=== PATIENT | female | born 1945 | race Two or more races ===

== ENCOUNTER 2020-04-20 18:05 | Inpatient (IN) | payer OTHER ==
[~2020-04-20] VITALS: Ht 144.8 cm; Wt 63.3 kg
[2020-04-20 21:20] VITALS: BP 156/82
[2020-04-20 21:30] VITALS: BP 156/98
--- NOTE | 2020-04-20 22:00 | NUR ---
admission notes: received report from culinary internshipbabs on, pt brought to the unit via stretcher pt mandi from [facility] for r/o tb. pt a/o x3 on ra respirations even and unlabored. kept comfortable. iv access patent an flushing well, on hl. skin assessment performed. inventory of belongings completed by jana martínez. pt council. all paper works from [facility] reviewed attached to chart. per report pt received zosyn 3.375 gm iv at 1999 in [facility] prior to pt dc. all admission questions answered by pt. per pt she claimed that she received flu vaccine ion [facility] however unsure of date/unable to recall date, offered to be vaccinated again but pt refused. oriented pt to unit policy and hourly rounding, use of call light system. mrsa swab done. vs taken and recorded. tele monitoring placed, on afib controlled hr 75. safety precautions for fall initiated, call light in reach, will continue monitoring pt.
[2020-04-20] MEDS ORDERED: LOSA50TA39 PO (22:41)
[2020-04-20] MEDS ORDERED: ZINC220C6 PO (22:41)
[2020-04-20] MEDS ORDERED: PROT946L PO (22:41)
[2020-04-20] MEDS ORDERED: MORP2VIA IVP (22:41)
[2020-04-20] MEDS ORDERED: METO25TA6 PO (22:41)
[2020-04-20] MEDS ORDERED: MENT71OI2 TP (22:41)
[2020-04-20] MEDS ORDERED: LISI-604 PO (22:41)
[2020-04-20] MEDS ORDERED: PIPE3.3749 IV (22:41)
[2020-04-20] MEDS ORDERED: MULT-754 PO (22:41)
[2020-04-20] MEDS ORDERED: APIX5TAB PO (22:41)
[2020-04-20] MEDS ORDERED: ACET-3117 PO (22:41)
[2020-04-20] MEDS ORDERED: SODI480S2 MC (22:41)
[2020-04-20] MEDS ORDERED: AMLO10TA4 PO (22:41)
[2020-04-20] MEDS ORDERED: ASCO500T21 PO (22:41)
[2020-04-20] MEDS ORDERED: PANT40TA2 PO (22:41)
--- NOTE | 2020-04-20 22:46 | NUR ---
RN NOTES/PAGED EPIC: PAGED EPIC HOSPITALIST REGARDING PT'S ADMISSION. RECEIVED CALL BACK AT THIS TIME, SPOKED WITH DR BRYSON, MADE AWARE OF PT'S ARRIVAL TO THE UNIT, DIRECT ADMIT FROM [facility], DX WITH PNA AND R/O TB, INFORMED MD OF VS AND LABS FROM [facility], MADE AWARE ALL MEDICATIONS (HOME MED LIST/HOSPITAL MED RECON LIST) ALL INPUT/ENTERED IN THE COMPUTER. STATED OKAY, WILL REVIEW AND WILL PLACE ADMIT ORDERS.
[2020-04-21] VITALS (9 sets, daily range): BP systolic 135–173; BP diastolic 70–106
[2020-04-21] MEDS ORDERED: ONDANSETRON HCL/PF 4 MG/2 ML VIAL IVP PRN
[2020-04-21] MEDS ORDERED: ZINC OXIDE TOP SCH
[2020-04-21] MEDS ORDERED: MAG HYDROX/AL HYDROX/SIMETH 30 ML UDC PO PRN
[2020-04-21] MEDS ORDERED: MENTHOL TOP SCH
[2020-04-21] MEDS ORDERED: Z GUARD REMEDY 2 OZ OINT TP PRN
[2020-04-21] MEDS ORDERED: MAGNESIUM HYDROXIDE 30 ML UDC PO PRN
[2020-04-21] MEDS ORDERED: PIPERACILLIN /TAZOBACTAM 3.375 G VIAL IV SCH (01:00)
[2020-04-21] MEDS ORDERED: PIPERACILLIN /TAZOBACTAM 3.375 G VIAL IV ONE (01:51)
[2020-04-21] MEDS: ZOSYN IVPB 3.375 G in IV D5W 50ml IV SCH ×2 (02:02→08:49)
[2020-04-21 06:42] LABS: BASOPHILS % (AUTO) 0.4 % (0.0-2.0); EOSINOPHILS % (AUTO) 0.9 % (0.0-6.0); HEMATOCRIT 40 % (33-45); HEMOGLOBIN 12.9 g/dL (11.5-14.8); LYMPHOCYTES # (AUTO) 0.8 /CMM (0.8-4.8); LYMPHOCYTES % (AUTO) 15.4 % (20.0-44.0); MEAN CORPUSCULAR HGB CONC 33 g/dl (31.0-36.0); MEAN CORPUSCULAR VOLUME 97 fL (82-100); MONOCYTES # (AUTO) 0.3 /CMM (0.1-1.30); MONOCYTES % (AUTO) 6.8 % (2.0-12.0); NEUTROPHILS # (AUTO) 3.9 /CMM (1.8-8.9); NEUTROPHILS % (AUTO) 76.5 % (43.0-81.0); PLATELET COUNT (AUTO) 237 /CMM (150-450); RED BLOOD CELL COUNT(AUTO) 4.09 MIL/uL (4.0-5.2); WHITE BLOOD COUNT (AUTO) 5.1 K/uL (4.3-11.0)
--- NOTE | 2020-04-21 06:47 | NUR ---
End of shift report: Pt remains on ra respirations even and unlabored. Iv access remains patent and flushing well, on hl, no s/s of iv infiltration noted. Pt on r/o tb isolation, ppe utilized with face shield and n95. Ble kept offloaded on pillows. Pt unable to provide specimen/sputum for afb smear despite teaching depp breathing coughing exercises, pt stated she only has dry cough. Pt had bm twice in the shift. Wound care consult, id and pulmo consult today. Vs remains stable, needs attended. Safety precautions for fall remains engaged, call light in reach, will endorse to day rn for kym.
[2020-04-21 07:22] LABS: CALCIUM, SERUM 9.6 mg/dL (8.5-10.1); CREATININE 0.6 mg/dL (0.6-1.3); MAGNESIUM 1.9 mg/dL (1.8-2.4); PHOSPHORUS 3.8 mg/dL (2.5-4.9); POTASSIUM 3.7 mmol/L (3.5-5.1)
--- NOTE | 2020-04-21 07:40 | NUR ---
RN NOTES Received Patient in bed resting comfortably in moderate high back rest. A/O X2. Iv access remains patent and flushing well, on hl, no s/s of iv infiltration noted. on Isolation, r/o tb isolation, Safety precautions for fall remains engaged, call light in reach, will continue to monitor.
[2020-04-21] MEDS: METOPROLOL TARTRATE 25 MG TABLET PO SCH ×2 (08:49→21:53)
[2020-04-21] MEDS: MULTIVITAMINS,THERAGRAN 1 UDTAB TABLET PO SCH (08:49)
[2020-04-21] MEDS: PANTOPRAZOLE 40 MG TABLET.DR PO SCH (08:49)
[2020-04-21] MEDS: ASCORBIC ACID 500 MG TABLET PO SCH (08:49)
[2020-04-21] MEDS: ZINC SULFATE 220 MG CAPSULE PO SCH (08:49)
[2020-04-21] MEDS: AMLODIPINE BESYLATE 10 MG TABLET PO SCH (08:50)
[2020-04-21] MEDS: APIXABAN 5 MG TABLET PO SCH ×2 (08:51→16:57)
[2020-04-21] MEDS ORDERED: LISINOPRIL (20MG) 20 MG TABLET PO SCH (09:00)
[2020-04-21] MEDS: PROSOURCE / PROSTAT (PYXIS) 30 ML UDC PO SCH ×2 (09:07→16:56)
[2020-04-21] MEDS: LOSARTAN POTASSIUM 50 MG TABLET PO SCH (10:50)
--- NOTE | 2020-04-21 10:50 | NUR ---
WOUND CARE CONSULT: PT FOLLOWED BY DR SALAZAR URIAS FOR SACRAL WOUND, PRESENT ON ADMISSION. RECOMMENDATIONS MADE FOR WOUND CARE AND SKIN PROTECTION. DISCUSSED WITH NURSING STAFF. MD IN AGREEMENT WITH PLAN OF CARE.
[2020-04-21] MEDS: DAKINS QUARTER STRENGTH (0.125%) 480 ML BOTTLE TOP SCH (11:53)
[2020-04-21] MEDS: PIPERACILLIN /TAZOBACTAM 3.375 G in IV D5W 100 ML IV SCH ×2 (14:09→21:57)
--- NOTE | 2020-04-21 18:46 | NUR ---
RN NOTES Patient in bed resting comfortably in moderate high back rest. A/O X2. Iv access remains patent and flushing well, on hl, no s/s of iv infiltration noted. on Isolation, r/o tb isolation, Safety precautions for fall remains engaged, call light in reach, will endorse to lieutenant shift supervisor nurse for kym.
--- NOTE | 2020-04-21 19:16 | NUR ---
AERONAUTICAL ENGINEERING PROFESSOR: RECEIVED PATIENT Patient in bed, awake. A/O x3 Forgetful. Tolerating room air, denies SOB. AFib controlled in the Tele monitor. AFB smear pending, sputum not available per DEANDRE Quezada. Airborne precaution maintained.
[2020-04-22] VITALS: BP 135/76
[2020-04-22 04:00] VITALS: BP 158/93
[2020-04-22 04:57] VITALS: BP 158/93
[2020-04-22] MEDS: PIPERACILLIN /TAZOBACTAM 3.375 G in IV D5W 100 ML IV SCH ×3 (05:09→22:28)
--- NOTE | 2020-04-22 06:37 | NUR ---
PRESSURE CONTROLLER: END OF SHIFT REPORT Patient in bed, slept well. AFib controlled HR 60 in the Tele monitor. On IV Abx. Afebrile. Quantiferon TB Gold pending result. Stable on room air, denies SOB with exertion. AFB cx smear pending, sputum not available for test, no cough. Airborne isolation for R/O TB. Will endorse to oncoming RN.
[2020-04-22 07:21] LABS: BASOPHILS % (AUTO) 0.9 % (0.0-2.0); EOSINOPHILS % (AUTO) 1.3 % (0.0-6.0); HEMATOCRIT 36 % (33-45); HEMOGLOBIN 11.8 g/dL (11.5-14.8); LYMPHOCYTES # (AUTO) 0.6 /CMM (0.8-4.8); LYMPHOCYTES % (AUTO) 15.8 % (20.0-44.0); MEAN CORPUSCULAR HGB CONC 33 g/dl (31.0-36.0); MEAN CORPUSCULAR VOLUME 96 fL (82-100); MONOCYTES # (AUTO) 0.3 /CMM (0.1-1.30); MONOCYTES % (AUTO) 7.3 % (2.0-12.0); NEUTROPHILS % (AUTO) 74.7 % (43.0-81.0); PLATELET COUNT (AUTO) 218 /CMM (150-450); RED BLOOD CELL COUNT(AUTO) 3.75 MIL/uL (4.0-5.2)
--- NOTE | 2020-04-22 07:30 | NUR ---
TELE/RN OPENING NOTES Received patient in bed, A&O x 3, [place]. Denies any pain and discomfort at this time. Breathing even and non-labored on RA. No respiratory or cardiac distress noted. On tele monitor, reading Afib (controlled) 71. IV access noted on RFA #22, patent and intact, and flushing well. Sensation from all peripheral extremities intact. Bed locked to its lowest position, side rails x 2 up, bed alarm on, call light in hand. Instructed patient to use call light when in need of assistance. Airborne precautions maintained. Will continue current medical management. Addendum: 04/22/20 at 1045 by HARRY GRACE RN Solomon in place, patent and intact, draining clear yellow urine output well.
[2020-04-22 07:35] LABS: CALCIUM, SERUM 9.3 mg/dL (8.5-10.1); CARBON DIOXIDE 29 mmol/L (21-32); CHLORIDE 106 mmol/L (98-107); CREATININE 0.5 mg/dL (0.6-1.3); GLUCOSE 97 mg/dL (74-106); POTASSIUM 3.3 mmol/L (3.5-5.1); SODIUM SERUM 141 mmol/L (136-145); UREA NITROGEN, BLOOD 13 mg/dL (7-18)
[2020-04-22 08:17] VITALS: BP 147/90
[2020-04-22] MEDS: METOPROLOL TARTRATE 25 MG TABLET PO SCH ×2 (08:24→22:28)
[2020-04-22] MEDS: ZINC SULFATE 220 MG CAPSULE PO SCH (08:24)
[2020-04-22] MEDS: MULTIVITAMINS,THERAGRAN 1 UDTAB TABLET PO SCH (08:24)
[2020-04-22] MEDS: AMLODIPINE BESYLATE 10 MG TABLET PO SCH (08:25)
[2020-04-22] MEDS: PANTOPRAZOLE 40 MG TABLET.DR PO SCH (08:25)
[2020-04-22] MEDS: LOSARTAN POTASSIUM 50 MG TABLET PO SCH (08:25)
[2020-04-22] MEDS: ASCORBIC ACID 500 MG TABLET PO SCH (08:26)
[2020-04-22] MEDS: APIXABAN 5 MG TABLET PO SCH ×2 (08:32→16:44)
--- NOTE | 2020-04-22 10:00 | NUR ---
MS/RN NOTES Patient refused to be lying on her right side. Will turn and reposition patient by supine or left lateral position every 2 hours.
[2020-04-22] MEDS: PROSOURCE / PROSTAT (PYXIS) 30 ML UDC PO SCH ×2 (10:29→16:42)
[2020-04-22] MEDS ORDERED: POTASSIUM CHLORIDE 20 MEQ TAB.PRT.SR PO SCH (10:30)
[2020-04-22] MEDS: DAKINS QUARTER STRENGTH (0.125%) 480 ML BOTTLE TOP SCH (10:34)
[2020-04-22] MEDS ORDERED: POTASSIUM CHLORIDE 20 MEQ TAB.PRT.SR PO ONE (11:40)
[2020-04-22] MEDS: HYDROCODONE/APAP 5/325MG TABLET PO PRN (11:52)
--- NOTE | 2020-04-22 11:52 | NUR ---
MS/RN NOTE Patient complaining of 7/10 aching pain on the right hand, where the previous IV site was located. Patient able to grasp object slowly, denies any numbness or tingling. Skin is pink, radial pulses noted. Elevated extremity with a pillow. Patient asked for pain medication, gave norco 5-325. Will continue to monitor.
--- NOTE | 2020-04-22 11:54 | NUR ---
MS/RN NOTE Clarified with pharmacy regarding potassium replacement orders since there are two orders: one at 1030 and one at 1140. Pharmacy said to omit the 1140 one, since they do not see it on the system. Pharmacy advised to administer the 1030 one. Administered PO 20 mEq of K DUR. Will continue to monitor.
--- NOTE | 2020-04-22 13:00 | NUR ---
Gisselle Reyes, DOWN FILLER at bedside, orders sputum induction in order to obtain AFB culture smear. Orders carried out, notified RT.
--- NOTE | 2020-04-22 13:30 | NUR ---
MS/RN NOTE RT states unable to obtain sputum since patient's lungs are clear and is unable to cough.
[2020-04-22 16:08] VITALS: BP 128/76
[2020-04-22] MEDS ORDERED: INFLUENZA VACCINE 2020-21 0.5 ML DISP.SYRIN IM ONE (18:00)
--- NOTE | 2020-04-22 18:35 | NUR ---
MS/RN CLOSING NOTES Patient resting in bed, A&O x 3, forgetful. All needs are met and attended to. VSS, afebrile, no SOB noted. Denies any pain/discomfort at this time. Breathing even and non-labored on RA, no SOB noted. No cardiac distress noted. IV access remained patent and intact, and flushing well. Turned and reposition every 2 hrs. Sensation from all peripheral extremities intact. Solomon in place, draining yellow urine well. Fall precautions maintained. Will endorse to shift leader nurse.
--- NOTE | 2020-04-22 19:30 | NUR ---
MS RN MS NOTES REPORT RECIEVED FROM HARRY CARRERA. PT IN BED PT DENIES SOB. AIRBORNE PRECAUTIONS IN PLACE R/O TB. REQUESTED SPUTUM SAMPLE PT STATES, "I HAVE THIS CUP HERE, BUT I AM JUST NOT COUGHING UP ANY PHLEGM." BREATHING EVEN AND NON- LABORED. DIMINISHED BREATH SOUNDS BILATERALLY. IV ACCESS TO RIGHT FA 22 GAUGE FLUSHED PATENT NO S/S OF INFILTRATION. FC DRAINING YELLOW URINE. CALL LIGHT IN REACH BED DOWN LOCKES SRX3 VERBALIZED UNDERSTANDING TO CALL FOR ASSISTANCE IF NEEDED.
--- NOTE | 2020-04-22 19:31 | NUR ---
FLU VACCINE PER REPORT FROM HARRY FLU VACCINE WAS TO BE GIVEN TO PT BUT PT REPORTS SHE RECIEED AT [facility] IN DAY OF 2019 OF THIS YEAR
[2020-04-22 20:43] VITALS: BP 121/60
[2020-04-22] MEDS: ACETAMINOPHEN 325 MG TABLET PO PRN (22:36)
[2020-04-23] MEDS: PIPERACILLIN /TAZOBACTAM 3.375 G in IV D5W 100 ML IV SCH ×3 (06:17→21:01)
[2020-04-23] MEDS: ACETAMINOPHEN 325 MG TABLET PO PRN (06:23)
[2020-04-23 06:56] LABS: CALCIUM, SERUM 9.4 mg/dL (8.5-10.1); CREATININE 0.6 mg/dL (0.6-1.3); POTASSIUM 3.3 mmol/L (3.5-5.1)
--- NOTE | 2020-04-23 07:00 | NUR ---
MS RN OPENING NOTES RECEIVED PT RESTING IN BED AT THIS TIME. PT IS A/O X3, SOMETIMES FORGETFUL. NO SOB NOTED, NO S/S OF ANY ACUTE DISTRESS NOTED. NO C/O PAIN AT THIS TIME. RESPIRATIONS ARE EVEN AND UNLABORED WITH EQUAL RISE AND FALL IN CHEST. IV ACCESS NOTED IN RFA G#22, INTACT, PATENT AND FLUSHING WELL. LEYVA CATHETER IN PLACE, DRAINING TO GRAVITY CLEAR YELLOW URINE OUTPUT. SAFETY PRECAUTION IN PLACE AND MAINTAINED AT ALL TIMES. BED IN LOWEST LOCKED POSITION, HOB ELEVATED, SIDE RAILS UP X 2, CALL LIGHT WITHIN REACH. WILL CONTINUE TO MONITOR
[2020-04-23] MEDS: LOSARTAN POTASSIUM 50 MG TABLET PO SCH (08:57)
[2020-04-23] MEDS: MULTIVITAMINS,THERAGRAN 1 UDTAB TABLET PO SCH (08:57)
[2020-04-23] MEDS: ZINC SULFATE 220 MG CAPSULE PO SCH (08:57)
[2020-04-23] MEDS: ASCORBIC ACID 500 MG TABLET PO SCH (08:58)
[2020-04-23] MEDS: AMLODIPINE BESYLATE 10 MG TABLET PO SCH (08:58)
[2020-04-23] MEDS: METOPROLOL TARTRATE 25 MG TABLET PO SCH ×2 (08:58→21:07)
[2020-04-23] MEDS: PANTOPRAZOLE 40 MG TABLET.DR PO SCH (08:58)
[2020-04-23] MEDS: APIXABAN 5 MG TABLET PO SCH ×2 (08:59→16:51)
[2020-04-23] MEDS: PROSOURCE / PROSTAT (PYXIS) 30 ML UDC PO SCH ×2 (09:06→16:49)
[2020-04-23] MEDS: DAKINS QUARTER STRENGTH (0.125%) 480 ML BOTTLE TOP SCH (09:06)
[2020-04-23 09:20] VITALS: BP 158/88
[2020-04-23] MEDS: POTASSIUM CHLORIDE 20 MEQ TAB.PRT.SR PO SCH ×2 (09:41→10:52)
--- NOTE | 2020-04-23 13:43 | NUR ---
MISCELLANEOUS ORDER PER DR ESTRADA TO OBTAIN RESULTS OF CHEST CT SCAN WHERE PT UNDERWENT THORACOTOMY. PT UNABLE TO FURNISH NURSE WITH LOCATION WHERE PROCEDURE WAS DONE, NO NEXT OF KIN LISTED. WILL CONTINUE WITH PLAN OF CARE
--- NOTE | 2020-04-23 16:00 | NUR ---
MS/RN OPENING NOTES Received patient in bed from [facility] RN, A&O x 3, [facility]. Denies any pain and discomfort at this time. Breathing even and non-labored on RA. No respiratory or cardiac distress noted. IV access noted on RFA #22, patent and intact, and flushing well. Sensation from all peripheral extremities intact. Solomon in place, draining yellow urine output well. Bed locked to its lowest position, side rails x 2 up, bed alarm on, call light in hand. Instructed patient to use call light when in need of assistance. Airborne precautions maintained. Will continue current medical management.
[2020-04-23 16:12] VITALS: BP 142/76
--- NOTE | 2020-04-23 17:00 | NUR ---
MS/RN NOTES Patient states she does not remember which hospital she underwent thoracotomy. [facility], states "medical records department is not available today. Try tomorrow morning." Will endorse to material handler 2nd shift nurse.
[2020-04-23 19:00] VITALS: BP 168/80
--- NOTE | 2020-04-23 19:25 | NUR ---
MS/RN OPENING NOTES Received patient in bed from [facility] RN, A&O x 3, [facility]. Denies any pain and discomfort at this time. Breathing even and non-labored on RA. No respiratory or cardiac distress noted. IV access noted on RFA #22, patent and intact, and flushing well. Sensation from all peripheral extremities intact. Solomon in place, draining yellow urine output well. Bed locked to its lowest position, side rails x 2 up, bed alarm on, call light in hand. Instructed patient to use call light when in need of assistance. Airborne precautions maintained. Will continue current medical management.
--- NOTE | 2020-04-23 19:27 | NUR ---
MS/RN CLOSING NOTES Patient resting in bed, A&O x 3, [place]. All needs met and attended to. VSS, afebrile, no SOB noted. Denies any pain and discomfort at this time. Breathing even and non-labored on RA. No respiratory or cardiac distress noted. IV access noted on RFA #22, patent and intact, and flushing well. Sensation from all peripheral extremities intact. Solomon in place, draining yellow urine output well. Fall precautions maintained. Airborne precautions maintained. Will endorse to distribution engineer nurse.
--- NOTE | 2020-04-23 19:50 | NUR ---
RN OPENING NOTES PATIENT RECEIVED RESTING IN BED A/O X 3. STABLE ON RA WITH BREATHING EVEN AND UNLABORED, NO SOB NOTED. NO SIGNS OF ACUTE DISTRESS. NO SIGNS OF PAIN OR DISCOMFORT. IV LOCATED ON R FA #22 TKO. SAFETY PRECAUTIONS IN PLACE WITH BED IN LOWEST POSITION, CALL LIGHT WITHIN REACH, BREAKS ON, SIDE RAILS UP. WILL CONTINUE TO MONITOR THROUGHOUT THE NIGHT.
[2020-04-24] MEDS: PIPERACILLIN /TAZOBACTAM 3.375 G in IV D5W 100 ML IV SCH ×3 (06:22→22:01)
--- NOTE | 2020-04-24 06:49 | NUR ---
RN CLOSING NOTES PATIENT RESTING IN BED A/O X 3. STABLE ON RA WITH BREATHING EVEN AND UNLABORED, NO SOB NOTED. NO SIGNS OF ACUTE DISTRESS. NO SIGNS OF PAIN OR DISCOMFORT. IV LOCATED ON R FA #22 TKO. SAFETY PRECAUTIONS IN PLACE WITH BED IN LOWEST POSITION, CALL LIGHT WITHIN REACH, BREAKS ON, SIDE RAILS UP. ALL NEEDS ATTENDED TO. PATIENT KEPT CLEAN AND DRY THROUGHOUT THE NIGHT. WILL ENDORSE TO ONCOMING SHIFT ABOUT IDALIA.
--- NOTE | 2020-04-24 07:33 | NUR ---
MS/RN OPENING NOTES RECEIVED PATIENT IN BED AWAKE ALERT AND ORIENTED X3. PATIENT IN NO APPARENT RESPIRATORY DISTRESS NOTED. DENIES PAIN AT THIS TIME. WILL CONTINUE TO MONITOR.
[2020-04-24 08:00] VITALS: BP 160/98
[2020-04-24] MEDS ORDERED: SODIUM CL FOR INHALATION 3% 15 ML VIAL.NEB IH ONE (08:36)
[2020-04-24] MEDS: ZINC SULFATE 220 MG CAPSULE PO SCH (09:05)
[2020-04-24] MEDS: ASCORBIC ACID 500 MG TABLET PO SCH (09:05)
[2020-04-24] MEDS: MULTIVITAMINS,THERAGRAN 1 UDTAB TABLET PO SCH (09:05)
[2020-04-24] MEDS: METOPROLOL TARTRATE 25 MG TABLET PO SCH ×2 (09:05→21:35)
[2020-04-24] MEDS: LOSARTAN POTASSIUM 50 MG TABLET PO SCH (09:05)
[2020-04-24] MEDS: AMLODIPINE BESYLATE 10 MG TABLET PO SCH (09:05)
[2020-04-24] MEDS: PANTOPRAZOLE 40 MG TABLET.DR PO SCH (09:05)
[2020-04-24] MEDS: APIXABAN 5 MG TABLET PO SCH ×2 (09:07→16:52)
[2020-04-24] MEDS: DAKINS QUARTER STRENGTH (0.125%) 480 ML BOTTLE TOP SCH (09:14)
[2020-04-24] MEDS: PROSOURCE / PROSTAT (PYXIS) 30 ML UDC PO SCH ×2 (09:15→16:53)
--- NOTE | 2020-04-24 14:26 | NUR ---
MS/RN NOTES CALLED THE [facility] , THE RECORD PERSONNEL WILL FAX THE RESULT FOR CT SCAN THORACOTOMY RESULT.
--- NOTE | 2020-04-24 14:50 | NUR ---
MS/RN NOTES [facility] THEY DON'T HAVE THE THORACOTOMY CT SCAN RESULT PER THE RECORD PERSONNEL. [facility] HAVE THE THORACOTOMY CT SCAN RESULT, MAKENZIE THE RECORD PERSONNEL WILL FAX IT. WAITING FOR THE RESULT AND WILL FOLLOW UP.
[2020-04-24 16:00] VITALS: BP 122/70
--- NOTE | 2020-04-24 16:07 | NUR ---
MS/RN NOTES CHEST CT SCAN RESULT IS ATTACH TO CHART. DR. ESTRADA IS AWARE NO NEW ORDER AT THIS TIME.
--- NOTE | 2020-04-24 19:02 | NUR ---
MS/RN CLOSING NOTES PATIENT IS ON BED AWAKE, ALERT AND ORIENTED X3. PATIENT IN NO APPARENT RESPIRATORY DISTRESS. IV ACCESS AT RIGHT FOREARM # 22 G PATENT AND INTACT. SEEN AND EXAMINED BY MD WITH ORDERS MADE AND CARRIED OUT. SAFETY PRECAUTIONS WAS IN PLACED. BED IN LOWEST POSITION AND LOCKED. SIDERAILS UP X2. CALL LIGHT WITHIN REACH. WILL ENDORSED TO PRODUCTION SPECIALIST FOR IDALIA. WILL ENDORSED TO PRODUCTION SPECIALIST FOR IDALIA.
--- NOTE | 2020-04-24 19:30 | NUR ---
RN NOTES RCEIVED PT. AWAKE ON BED, A/OX3,FORGETFUL, F/ C DRAINING CLEAR YELLOW URINE, NO IN DISTRESS, NO PAIN NOTED, CALL LIGHT WITHIN REACH, SIDERAILSUPX2, CONTINUE TO MONITOR
[2020-04-24 20:00] VITALS: BP 151/70
[2020-04-25] MEDS: PIPERACILLIN /TAZOBACTAM 3.375 G in IV D5W 100 ML IV SCH ×2 (05:30→14:20)
--- NOTE | 2020-04-25 06:30 | NUR ---
RN NOTES AWAKE,MORNING CARE RENDERED, DENIES PAIN, NO SOB, CALL LIGHT WITHIN REACH, SIDERAILSUPX2, PT. NEEDS ATTENDED
--- NOTE | 2020-04-25 07:39 | NUR ---
MS/RN OPENING NOTES PATIENT IS ON BED AWAKE ALERT AND ORIENTED X3. PATIENT DENIES PAIN AT THIS TIME. PATIENT IN NO APPARENT RESPIRATORY DISTRESS NOTED. WILL CONTINUE TO MONITOR.
[2020-04-25] MEDS: ASCORBIC ACID 500 MG TABLET PO SCH (08:53)
[2020-04-25] MEDS: PANTOPRAZOLE 40 MG TABLET.DR PO SCH (08:54)
[2020-04-25] MEDS: AMLODIPINE BESYLATE 10 MG TABLET PO SCH (08:54)
[2020-04-25] MEDS: ZINC SULFATE 220 MG CAPSULE PO SCH (08:54)
[2020-04-25] MEDS: METOPROLOL TARTRATE 25 MG TABLET PO SCH ×2 (08:54→21:38)
[2020-04-25] MEDS: MULTIVITAMINS,THERAGRAN 1 UDTAB TABLET PO SCH (08:54)
[2020-04-25] MEDS: LOSARTAN POTASSIUM 50 MG TABLET PO SCH (08:55)
[2020-04-25] MEDS: APIXABAN 5 MG TABLET PO SCH ×2 (08:56→16:43)
[2020-04-25] MEDS: PROSOURCE / PROSTAT (PYXIS) 30 ML UDC PO SCH ×2 (09:00→16:44)
[2020-04-25] MEDS: DAKINS QUARTER STRENGTH (0.125%) 480 ML BOTTLE TOP SCH (09:00)
--- NOTE | 2020-04-25 11:46 | NUR ---
MS/RN NOTES DR. ESTRADA ORDER BRONCHOSCOPY ON Tuesday, CONSENT, NPO AFTER 0600 AM TUESDAY START IV WITH D5NS AT 75 ML/HR AT MIDNIGHT Tuesday. NOTED AND CARRIED OUT.
--- NOTE | 2020-04-25 18:41 | NUR ---
MS/RN CLOSING NOTES PATIENT IS ON BED. ALERT AND ORIENTED X3. PATIENT DENIES PAIN AT THIS TIME. IV ACCESS AT RIGHT FOREARM # 22 G PATENT AND INTACT. SEEN AND EXAMINED BY MD WITH ORDERS MADE AND CARRIED OUT. SAFETY PRECAUTION WAS IN PLACED. BED IN LOWEST POSITION AND LOCKED. SIDERAILS UP X2. CALL LIGHT WITHIN REACH. PATIENT IS POSSIBLE DISCHARGED TODAY. WILL ENDORSED TO PHOTOGRAPH TINTER FOR IDALIA.
--- NOTE | 2020-04-25 19:53 | NUR ---
MS RN RECEIVE PT IN BED, AWAKE, STABLE A/O X 2-3 FORGETFUL NOT IN DISTRESS, SAFETY MEASURES AT ALL TIMES. WILL CONT TO MONITOR
[2020-04-25 20:00] VITALS: BP 130/70
[2020-04-25 20:16] VITALS: BP 130/70
[2020-04-25] MEDS: HYDROCODONE/APAP 5/325MG TABLET PO PRN (21:37)
--- NOTE | 2020-04-26 06:17 | NUR ---
MS RN REMAINS ISOLATION FOR BRONCHOSCOPY ON 04/28/2020. PT MONITORED ACCORDINGLY, ALL NEEDS ATTENDED AND ANTICIPATED, GOOD SKIN CARE AT ALL TIME, NOT IN DISTRESS, KEPT CLEAN, DRY AND COMFORTABLE, AM CARE RENDERED, DENIES PAIN. SAFETY MEASURES AT ALL TIMES. WILL ENDORSE TO NEXT SHIFT.
--- NOTE | 2020-04-26 07:16 | NUR ---
MS RN OPENING NOTES PATIENT RECEIVED AWAKE IN BED IN NO ACUTE SIGNS OF DISTRESS. HOB ELEVATED. A/O X 3. VERBALLY RESPONSIVE, DENIES NO SIGNS OF PAIN OR DISCOMFORTS AT THIS TIME. ON RA, BREATHING EVEN AND UNLABORED. IV ACCESS ON R FA #22 INTACT AND PATENT, TKO. SAFETY PRECAUTIONS IN PLACE: BED IN LOWEST POSITION AND LOCKED. CALL LIGHT WITHIN REACH, SIDE RAILS UP X2. WILL CONTINUE TO MONITOR PT ACCORDINGLY.
[2020-04-26 08:00] VITALS: BP 158/86
[2020-04-26] MEDS ORDERED: LOSARTAN POTASSIUM 50 MG TABLET ONE (08:38)
[2020-04-26] MEDS: MULTIVITAMINS,THERAGRAN 1 UDTAB TABLET PO SCH (08:52)
[2020-04-26] MEDS: LOSARTAN POTASSIUM 50 MG TABLET PO SCH (08:52)
[2020-04-26] MEDS: ZINC SULFATE 220 MG CAPSULE PO SCH (08:52)
[2020-04-26] MEDS: METOPROLOL TARTRATE 25 MG TABLET PO SCH ×2 (08:53→20:32)
[2020-04-26] MEDS: ASCORBIC ACID 500 MG TABLET PO SCH (08:53)
[2020-04-26] MEDS: AMLODIPINE BESYLATE 10 MG TABLET PO SCH (08:53)
[2020-04-26] MEDS: PANTOPRAZOLE 40 MG TABLET.DR PO SCH (08:53)
[2020-04-26] MEDS: APIXABAN 5 MG TABLET PO SCH ×2 (08:54→16:19)
[2020-04-26] MEDS: PROSOURCE / PROSTAT (PYXIS) 30 ML UDC PO SCH ×2 (08:54→16:19)
[2020-04-26] MEDS: DAKINS QUARTER STRENGTH (0.125%) 480 ML BOTTLE TOP SCH (08:57)
--- NOTE | 2020-04-26 14:19 | NUR ---
RN NOTES CLARIFIED WITH INDIO PIZANO ABOUT PT'S BRONCHOSCOPY SCHEDULE SHE SAID THAT IT WILL BE ON 04/28/2020 AT 1430. NPO WILL BE ENFORCED POST MIDNIGHT. WILL ENDORSE
[2020-04-26 16:00] VITALS: BP 152/75
--- NOTE | 2020-04-26 18:42 | NUR ---
MS RN CLOSING NOTES PATIENT IN BED AWAKE AND LYING AT MODERATE HIGH BACKREST POSITION. A/O X 3. ABLE TO MAKE NEEDS KNOWN. AIRBORNE PRECAUTIONS MAINTAINED FOR POSSIBLE TB. ON RA, BREATHING EVEN AND UNLABORED, NO SOB NOTED THROUGHOUT THE DAY. IV SL ON RFA G#22 INTACT AND PATENT, NO REDNESS OR S/S OF INFILTRATIONS AT SITE NOTED. LEYVA IN PLACE AND ACTIVELY DRAINING CLEAR YELLOW URINE VIA GRAVITY, LEYVA CARE DONE. DRESSING ON SACRAL ULCER C/D/I. PT ASSISTED ON TURNING AND REPOSITIONING Q2HRS AND PRN. ALL NEEDS AND CARE PROVIDED WELL. SAFETY PRECAUTIONS IN PLACE: BED IN LOWEST POSITION AND LOCKED. CALL LIGHT WITHIN REACH, SIDE RAILS UP X2. WILL ENDORSE IDALIA TO INCOMING NIGHT NURSE.
--- NOTE | 2020-04-26 19:30 | NUR ---
RN OPENING NOTE RECEIVED PATIENT IN BED, IN SEMI JORGE'S, AO X 3, CONFUSED AT TIMES. PATIENT IN NO S/SX OF ACUTE DISTRESS AT THIS TIME. NO SOB NOTED. PATIENT'S BREATHING IS EVEN AND UNLABORED, SATURATING >95% ON ROOM AIR. NOTED IV SITE AT RFA G22, PATENT AND FLUSHING WELL, NO S/S OF INFECTION OR INFILTRATION. LEYVA CATH CONNECTED TO URINE BAG IN PLACE, DRAINING TO A CLEAY, YELLOW URINE. NOTED SACRAL WOUND, WITH DRESSING DRY AND INTACT. SAFETY MEASURES IMPLEMENTED PER PROTOCOL. PATIENT BED ALARM IS ON. HEAD OF BED ELEVATED. BED IS LOCKED, IN LOWEST POSITION AND SIDE RAILS UP. CALL LIGHT WITHIN REACH OF THE PATIENT. AIRBORNE ISOLATION MAINTAINED PENDING TB RESULT. WILL CONTINUE TO MONITOR AND REASSESS FOR ANY CHANGES.
[2020-04-26 20:00] VITALS: BP 145/98
[2020-04-26 20:29] VITALS: BP 145/98
[2020-04-26] MEDS: ACETAMINOPHEN 325 MG TABLET PO PRN (20:32)
[2020-04-27 08:00] VITALS: BP 156/74
--- NOTE | 2020-04-27 08:00 | NUR ---
RN OPENING NOTE Patient is resting in bed, A/O x3, showing no signs of acute distress or SOB, stable on RA. IV line in the RFA #22g is clean and intact running TKO. Patient denies any pain at this time. Bed is in lowest position, side rails x3 in upright position, call light is within reach, fall safety and aspiration precautions enforced. Will continue with plan of care.
[2020-04-27] MEDS: ZINC SULFATE 220 MG CAPSULE PO SCH (08:27)
[2020-04-27] MEDS: LOSARTAN POTASSIUM 50 MG TABLET PO SCH (08:27)
[2020-04-27] MEDS: ASCORBIC ACID 500 MG TABLET PO SCH (08:27)
[2020-04-27] MEDS: METOPROLOL TARTRATE 25 MG TABLET PO SCH ×2 (08:27→22:26)
[2020-04-27] MEDS: APIXABAN 5 MG TABLET PO SCH ×2 (08:28→16:26)
[2020-04-27] MEDS: PANTOPRAZOLE 40 MG TABLET.DR PO SCH (08:28)
[2020-04-27] MEDS: MULTIVITAMINS,THERAGRAN 1 UDTAB TABLET PO SCH (08:28)
[2020-04-27] MEDS: AMLODIPINE BESYLATE 10 MG TABLET PO SCH (08:28)
[2020-04-27] MEDS: PROSOURCE / PROSTAT (PYXIS) 30 ML UDC PO SCH ×2 (08:29→16:26)
[2020-04-27 09:00] VITALS: BP 156/74
[2020-04-27] MEDS: DAKINS QUARTER STRENGTH (0.125%) 480 ML BOTTLE TOP SCH (09:40)
[2020-04-27 16:00] VITALS: BP 152/76
[2020-04-27 17:00] VITALS: BP 152/76
--- NOTE | 2020-04-27 18:34 | NUR ---
RN CLOSING NOTE Patient is resting in bed, A/O x3, showing no signs of acute distress or SOB, stable on RA. IV line in the RFA #22g is clean and intact running TKO. Patient denies any pain at this time. Patient is to be NPO tomorrow morning at 0600 for scheduled BRONCHOSCOPY at 1430 tomorrow. Verbal consent has been given due to patient c/o of "not being able to write at this time." All patient needs met, all due medications given, wound care completed as ordered, skin protection measures implemented. Bed is in lowest position, side rails x3 in upright position, call light is within reach, fall safety and aspiration precautions enforced. Isolation precautions enforced to R/O TB. Will endorse to scene shifter.
--- NOTE | 2020-04-27 19:55 | NUR ---
MS/RN OPENING NOTES RECEIVED PATIENT IN BED RESTING. PATIENT IS ALERT AND ORIENTED X 3. PATIENT SHOWS NO SIGNS OF SOB OR RESPIRATORY DISTRESS. PATIENT STATES NO PAIN AT THIS TIME. PATIENT HAS IV ACCESS ON RIGHT FA #22G INTACT. PATIENT WILL BE NPO TOMORROW MORNING STARTING AT 0600HRS FOR SCHEDULED BRONCHOSCOPY AT 1400HRS. ISO PRECAUTIONS ENFORCED TO R/O TB. SAFETY MEASURES ARE IN PLACE, BED IS LOCKED AND PLACED IN THE LOWEST POSITION, SIDE RAILS UP X 3. CALL LIGHT IS WITHIN REACH. WILL CONTINUE TO MONITOR DURING SHIFT.
[2020-04-27 20:00] VITALS: BP 146/78
[2020-04-27] MEDS ORDERED: IV D5/ 0.9% NACL 1,000 ML IV SCH (21:00)
[2020-04-27] MEDS: IV D5/ 0.9% NACL 1,000 ML IV PRN (23:25)
--- NOTE | 2020-04-28 06:45 | NUR ---
MS/RN CLOSING NOTES PATIENT IN BED RESTING. PATIENT IS ALERT AND ORIENTED X 3. PATIENT SHOWS NO SIGNS OF SOB OR RESPIRATORY DISTRESS. PATIENT STATES NO PAIN AT THIS TIME. PATIENT HAS IV ACCESS ON RIGHT FA #22G INTACT RUNNING D5 NS 75CC/HR. PATIENT WILL BE NPO FOR SCHEDULED BRONCHOSCOPY AT 1400HRS. ISO PRECAUTIONS ENFORCED TO R/O TB. LEYVA CATH OUTPUT 800 CC. ALL PATIENT NEEDS HAVE MET DURING SHIFT. SAFETY MEASURES ARE IN PLACE, BED IS LOCKED AND PLACED IN THE LOWEST POSITION, SIDE RAILS UP X 3. CALL LIGHT IS WITHIN REACH. WILL ENDORSE CARE TO DAY SHIFT.
[2020-04-28] MEDS: MORPHINE SULFATE INJ 2 MG/ML DISP.SYRIN IV PRN ×2 (07:56→13:09)
[2020-04-28 08:37] VITALS: BP 148/65
[2020-04-28] MEDS: PROSOURCE / PROSTAT (PYXIS) 30 ML UDC PO SCH ×2 (09:00→17:24)
[2020-04-28] MEDS: MULTIVITAMINS,THERAGRAN 1 UDTAB TABLET PO SCH (09:00)
[2020-04-28] MEDS: ASCORBIC ACID 500 MG TABLET PO SCH (09:00)
[2020-04-28] MEDS: ZINC SULFATE 220 MG CAPSULE PO SCH (09:00)
[2020-04-28] MEDS: AMLODIPINE BESYLATE 10 MG TABLET PO SCH (09:00)
[2020-04-28] MEDS: LOSARTAN POTASSIUM 50 MG TABLET PO SCH (09:00)
[2020-04-28] MEDS: METOPROLOL TARTRATE 25 MG TABLET PO SCH ×2 (09:00→20:31)
[2020-04-28] MEDS: APIXABAN 5 MG TABLET PO SCH ×2 (09:00→17:24)
[2020-04-28] MEDS: PANTOPRAZOLE 40 MG TABLET.DR PO SCH (09:00)
[2020-04-28] MEDS: DAKINS QUARTER STRENGTH (0.125%) 480 ML BOTTLE TOP SCH (09:07)
--- NOTE | 2020-04-28 09:19 | NUR ---
RN OPENING NOTES RECEIVED PATIENT IN BED RESTING. ALERT AND ORIENTED X 2.NO CARDIAC OR RESPIRATORY DISTRESS NOTED. NO SOB NOTED. SATURATING WELL ON ROOM AIR. PATIENT STATES NO PAIN AT THIS TIME. IV ACCESS ON RIGHT FA #22G INTACT RUNNING D5 NS 75CC/HR. PT STILL KEPT NPO FOR BRONCHOSCOPY THIS AFTERNOON. LEYVA CATH INTACT AND PATENT AND DRAINING WITH CLEAR YELLOW URINE. SAFETY MEASURES ARE IN PLACE, BED IS LOCKED AND PLACED IN THE LOWEST POSITION, SIDE RAILS UP X 3. CALL LIGHT IS WITHIN REACH. WILL CONT TO MONITOR.
--- NOTE | 2020-04-28 09:27 | NUR ---
BRONCHOSCOPY DR. ESTRADA CALLED. INFORMED MD THAT CONSENT IS IN PLACE AND PT IS KEPT NPO. PER MD PROCEDURE WILL BE DONE AT 1430.
--- NOTE | 2020-04-28 11:30 | NUR ---
K+ LEVELS LAB REPORTED K+ LEVEL OF 2.7. REPORTED TO DR. SEAN MD ORDERED 50MEQ OF KCL VIA IV.
[2020-04-28 11:31] LABS: CALCIUM, SERUM 9.5 mg/dL (8.5-10.1); CARBON DIOXIDE 28 mmol/L (21-32); CHLORIDE 104 mmol/L (98-107); CREATININE 0.4 mg/dL (0.6-1.3); GLUCOSE 113 mg/dL (74-106); SODIUM SERUM 141 mmol/L (136-145); UREA NITROGEN, BLOOD 9 mg/dL (7-18)
[2020-04-28 11:40] LABS: POTASSIUM 2.7 mmol/L (3.5-5.1)
[2020-04-28] MEDS ORDERED: POTASSIUM CHLORIDE 10 MEQ/50 ML PREMIXED IVPB FOR PERIPHERAL LINE IV ONE (12:00)
--- NOTE | 2020-04-28 12:45 | NUR ---
BRONCHOSCOPY DR. ESTRADA CALLED BACK. PER , PTS PROCEDURE IS CANCELLED TODAY D/T POTASSIUM LEVELS. STATED, PT MAY EAT TODAY THEN NPO STARTING 6AM IN THE MORNING. ALSO ORDERED TO REPEAT K+ LEVELS TODAY AFTER THE REPLACEMENT IS COMPLETED. AND THEN TO ORDERE CHEM-7 IN AM. ORDERS WERE ALL NOTED AND CARRIED OUT.
[2020-04-28] MEDS: POTASSIUM CL. PREMIX PERIPHER. 50 ML IV SCH ×5 (13:08→17:24)
[2020-04-28 16:00] VITALS: BP 147/76
--- NOTE | 2020-04-28 18:54 | NUR ---
RN CLOSING NOTES PATIENT IN BED RESTING. ALERT AND ORIENTED X 3.NO CARDIAC OR RESPIRATORY DISTRESS NOTED. NO SOB NOTED. SATURATING WELL ON ROOM AIR. PATIENT STATES NO PAIN AT THIS TIME. IV ACCESS ON L AC G20 AND R AC G20 INTACT RUNNING D5 NS 75CC/HR. PT WILL BE KEPT NPO AFTER MIDNIGHT TONIGHT FOR BRONCHOSCOPY TOMORROW WITH DR. ESTRADA. LEYVA CATH INTACT AND PATENT AND DRAINING WITH CLEAR YELLOW URINE. WOUND CARE TX DONE. ALL NEEDS MET AND ATTENDED. ALL DUE MEDS ADMINISTERED. NO ASE NOTED. WILL ENDORSE TO NEXT SHIFT TO F/U ON K+ LEVELS FOR TONIGHT. SAFETY MEASURES ARE IN PLACE, BED IS LOCKED AND PLACED IN THE LOWEST POSITION, SIDE RAILS UP X 3. CALL LIGHT IS WITHIN REACH. WILL CONT TO MONITOR.
--- NOTE | 2020-04-28 19:58 | NUR ---
MS/RN OPENING NOTE Patient awake in bed, A/O x3, confused at times. HOB elevated. Breathing even, unlabored. No respiratory distress or SOB. No JVD. Tongue midline, tracheal deviation. CRP <3seconds. Skin warm, pink, dry appropriate for ethnicity. 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 Solomon catheter in place, patent. Urine output clear, yellow, no sediment. Abdomen large, round, soft, non-tender. BS hypoactive. IV site LAC 20g running D5NS @ 75 ml/hr, no redness or infiltration. IV site RAC 20g, saline locked, patent and intact. Bed in low position, wheels locked, side rails up x2, call light within reach.
[2020-04-28 20:00] VITALS: BP 129/68
[2020-04-28 20:21] VITALS: BP 129/68
[2020-04-28] MEDS ORDERED: POTASSIUM CHLORIDE 20 MEQ TAB.PRT.SR PO ONE (23:00)
[2020-04-29] VITALS (7 sets, daily range): BP systolic 109–159; BP diastolic 52–87
--- NOTE | 2020-04-29 00:13 | NUR ---
MS/RN NOTE Patient's potassium lab recheck is 3.3. Notified MD and received new medication order for one time dose of KCl PO 40 mEq. VSS. Will continue to monitor.
[2020-04-29] MEDS: IV D5/ 0.9% NACL 1,000 ML IV PRN (03:09)
--- NOTE | 2020-04-29 06:00 | NUR ---
MS/RN CLOSING NOTE Patient awake in bed, A/O x3. HOB elevated. Breathing even, unlabored. No respiratory distress or SOB. 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 Solomon catheter in place, patent. Urine output clear, yellow, no sediment, 1100 ml. No BM this shift. IV site LAC 20g running D5NS @ 75 ml/hr, no redness or infiltration. IV site RAC 20g, saline locked, patent and intact. Bed in low position, wheels locked, side rails up x2, call light within reach.
[2020-04-29 07:01] LABS: CALCIUM, SERUM 9.6 mg/dL (8.5-10.1); CARBON DIOXIDE 25 mmol/L (21-32); CHLORIDE 106 mmol/L (98-107); CREATININE 0.4 mg/dL (0.6-1.3); GLUCOSE 116 mg/dL (74-106); POTASSIUM 3.5 mmol/L (3.5-5.1); SODIUM SERUM 141 mmol/L (136-145); UREA NITROGEN, BLOOD 10 mg/dL (7-18)
--- NOTE | 2020-04-29 08:10 | NUR ---
MS RN OPENING NOTE PATIENT IN BED RESTING COMFORTABLY. PATIENT IN NO ACUTE DISTRESS. NO SOB NOTED. PATIENT BREATHING IS EVEN AND UNLABORED. NPO STATUS MAINTAINED. BED ALARM IS ON. SAFETY PRECAUTIONS IN PLACE. PATIENT BED IS LOCKED AND IN LOWEST POSITION. CALL LIGHT WITHIN REACH. WILL CONTINUE TO MONITOR.
[2020-04-29] MEDS: POTASSIUM CL. PREMIX PERIPHER. 50 ML IV SCH ×2 (08:47→09:56)
[2020-04-29] MEDS: DAKINS QUARTER STRENGTH (0.125%) 480 ML BOTTLE TOP SCH (08:52)
[2020-04-29] MEDS: LOSARTAN POTASSIUM 50 MG TABLET PO SCH (08:53)
[2020-04-29] MEDS: METOPROLOL TARTRATE 25 MG TABLET PO SCH ×2 (08:54→21:15)
[2020-04-29] MEDS: AMLODIPINE BESYLATE 10 MG TABLET PO SCH (08:54)
[2020-04-29] MEDS: APIXABAN 5 MG TABLET PO SCH ×2 (08:54→17:25)
[2020-04-29] MEDS: ZINC SULFATE 220 MG CAPSULE PO SCH (08:55)
[2020-04-29] MEDS: ASCORBIC ACID 500 MG TABLET PO SCH (08:55)
[2020-04-29] MEDS: PROSOURCE / PROSTAT (PYXIS) 30 ML UDC PO SCH ×2 (08:55→17:25)
[2020-04-29] MEDS: MULTIVITAMINS,THERAGRAN 1 UDTAB TABLET PO SCH (08:55)
[2020-04-29] MEDS: PANTOPRAZOLE 40 MG TABLET.DR PO SCH (08:55)
--- NOTE | 2020-04-29 08:56 | NUR ---
MS RN NOTE HELD 0900 PO MEDICATIONS DUE TO BRONCHOSCOPY SCHEDULED TODAY. NPO STATUS MAINTAINED. PATIENT WELL AWARE. OR CALLED AND INFORMED ME RAPID COVID TEST FROM HOSPITAL IS NEEDED PRIOR TO PROCEDURE. INFORMED FIDEL GALVEZ AND ORDER FOR COVID RAPID TEST TO BE PLACED.
[2020-04-29] MEDS ORDERED: FENTANYL PF 100MCG/2ML AMPUL ONE (14:57)
[2020-04-29] MEDS ORDERED: MIDAZOLAM HCL 2 MG/2ML VIAL ONE (14:57)
[2020-04-29] MEDS ORDERED: FAMOTIDINE/PF INJ 20 MG/2 ML VIAL IV ONE (14:57)
[2020-04-29] MEDS ORDERED: SUCCINYLCHOLINE CHLORIDE 20 MG/ML VIAL ONE (14:58)
--- NOTE | 2020-04-29 16:44 | NUR ---
MS RN NOTE PATIENT ARRIVED FROM BRONCHOSCOPY PROCEDURE. PATIENT VITAL SIGNS WNL. PATIENT IN NO ACUTE DISTRESS. NO SOB NOTED. PATIENT BREATHING IS EVEN AND UNLABORED. WILL CONTINUE TO MONITOR.
--- NOTE | 2020-04-29 16:50 | NUR ---
MS RN NOTE PATIENT ORDERS TO RESUME PREVIOUS DIET ORDER. INFORMED JALYN GALVEZ ABOUT ORDERS TO RESUME DIET. PER MD ORDER TO START WITH SOFT DIET AND UPGRADE TO REGULAR IF TOLERATING.
[2020-04-29] MEDS ORDERED: HYDROCODONE BIT/HOMATROPINE 5 ML UDC PO PRN (17:30)
--- NOTE | 2020-04-29 19:00 | NUR ---
MS RN CLOSING NOTE PATIENT IN BED RESTING COMFORTABLY. PATIENT IN NO ACUTE DISTRESS. NO SOB NOTED. PATIENT BREATHING IS EVEN AND UNLABORED. NPO STATUS MAINTAINED. KEPT CLEAN AND DRY THROUGHOUT SHIFT. NEEDS AND CONCERNS ADDRESSED. PATIENT STATES NO PAIN AT THIS TIME. BED ALARM IS ON. SAFETY PRECAUTIONS IN PLACE. PATIENT BED IS LOCKED AND IN LOWEST POSITION. CALL LIGHT WITHIN REACH. WILL ENDORSE CARE TO PM SHIFT FOR IDALIA.
--- NOTE | 2020-04-29 20:00 | NUR ---
ms latricia initial notes received report from am nurse Mundo and seen pt in her lying in [facility] bed awake and alert watching TV at this time. no signs of any distress noted she's on O2 at 2 liters via NC ,she's complaining of pain on her buttocks area for sitting in a long time from OR to her room. reposition her for comfort and kept her warm and comfortable at all times. She still on Isolation for ruled out TB . isolation precaution implemented and observed. place call light at reach. will continue monitoring.
--- NOTE | 2020-04-30 00:45 | NUR ---
TELE COMMUNITY HEALTH PLANNING DIRECTOR NOTES PT SLEEPING AT THIS TIME, BREATHING EVEN AND UNLABORED NOT IN ANY ACUTE DISTRESS NOTED. IVF STILL INFUSING. KEPT HER WARM AND COMFORTABLE AT ALL TIMES. WILL CONTINUE MONITORING. PLACE CALL LIGHT AT REACH.
[2020-04-30 04:20] VITALS: BP 112/77
[2020-04-30 06:58] LABS: BASOPHILS % (AUTO) 0.1 % (0.0-2.0); HEMATOCRIT 37 % (33-45); HEMOGLOBIN 12.3 g/dL (11.5-14.8); LYMPHOCYTES # (AUTO) 0.2 /CMM (0.8-4.8); LYMPHOCYTES % (AUTO) 4.4 % (20.0-44.0); MEAN CORPUSCULAR HGB CONC 33 g/dl (31.0-36.0); MEAN CORPUSCULAR VOLUME 96 fL (82-100); MONOCYTES # (AUTO) 0.1 /CMM (0.1-1.30); MONOCYTES % (AUTO) 2.2 % (2.0-12.0); NEUTROPHILS # (AUTO) 4.8 /CMM (1.8-8.9); NEUTROPHILS % (AUTO) 93.3 % (43.0-81.0); PLATELET COUNT (AUTO) 297 /CMM (150-450); RED BLOOD CELL COUNT(AUTO) 3.86 MIL/uL (4.0-5.2); WHITE BLOOD COUNT (AUTO) 5.2 K/uL (4.3-11.0)
[2020-04-30 07:04] LABS: CARBON DIOXIDE 26 mmol/L (21-32); CHLORIDE 107 mmol/L (98-107); CREATININE 0.5 mg/dL (0.6-1.3); GLUCOSE 138 mg/dL (74-106); SODIUM SERUM 141 mmol/L (136-145); UREA NITROGEN, BLOOD 16 mg/dL (7-18)
--- NOTE | 2020-04-30 07:05 | NUR ---
MS RN NOTES RECEIVED PATIENT IN BED ASLEEP, AROUSABLE TO VERBAL AND TACTILE STIMULI. ALERT AND ORIENTED X3. NO SOB. DENIES ANY C/O PAIN NOR DISCOMFORT AT THIS TIME. LEFT AC # 20 INTACT AND PATENT INFUSING D5 NS AT 75 ML/HR. BED IN LOWEST POSITION, LOCKED. BED IN LOWEST POSITION, LOCKED. BED ALARM ON. CALL LIGHT WITHIN REACH. ABLE TO VERBALIZE NEEDS.
--- NOTE | 2020-04-30 07:57 | NUR ---
ms clinical assoc clsoing notes pt remains sleeping . no signs of any distress noted. slept well and stable throughout the night. not in any discomfort noted. am care done by state highway police officer and reposition for comfort. kept her warm and comfortable at all times. endorse to am nurse for continuity of care.
[2020-04-30] MEDS: AMLODIPINE BESYLATE 10 MG TABLET PO SCH (08:41)
[2020-04-30] MEDS: LOSARTAN POTASSIUM 50 MG TABLET PO SCH (08:41)
[2020-04-30] MEDS: METOPROLOL TARTRATE 25 MG TABLET PO SCH ×2 (08:42→20:55)
[2020-04-30] MEDS: ASCORBIC ACID 500 MG TABLET PO SCH (08:42)
[2020-04-30] MEDS: PANTOPRAZOLE 40 MG TABLET.DR PO SCH (08:42)
[2020-04-30] MEDS: MULTIVITAMINS,THERAGRAN 1 UDTAB TABLET PO SCH (08:42)
[2020-04-30] MEDS: APIXABAN 5 MG TABLET PO SCH ×2 (08:43→16:38)
[2020-04-30] MEDS: PROSOURCE / PROSTAT (PYXIS) 30 ML UDC PO SCH ×2 (08:46→16:37)
[2020-04-30] MEDS: DAKINS QUARTER STRENGTH (0.125%) 480 ML BOTTLE TOP SCH (08:46)
[2020-04-30] MEDS: ZINC SULFATE 220 MG CAPSULE PO SCH (08:47)
[2020-04-30] MEDS: IV D5/ 0.9% NACL 1,000 ML IV PRN (13:33)
--- NOTE | 2020-04-30 15:00 | NUR ---
MS RN NOTES SPOKE TO VICKY, PATIENT'S DAUGHTER . PER VICKY SHE IS GOING TO TAKE PATIENT HOME WHEN SHE GETS DISCHARGE.
--- NOTE | 2020-04-30 19:10 | NUR ---
MS RN NOTES RECEIVED PATIENT IN BED ASLEEP, AROUSABLE TO VERBAL AND TACTILE STIMULI. ALERT AND ORIENTED X3. NO SOB. DENIES ANY C/O PAIN NOR DISCOMFORT AT THIS TIME. LEFT AC # 20 INTACT AND PATENT INFUSING D5 NS AT 75 ML/HR. F/C INTACT AND PATENT DRAINING YELLOW COLORED URINE VIA BEDSIDE. BED IN LOWEST POSITION, LOCKED. BED IN LOWEST POSITION, LOCKED. BED ALARM ON. CALL LIGHT WITHIN REACH. ABLE TO VERBALIZE NEEDS. IN NO APPARENT DISTRESS.
--- NOTE | 2020-04-30 19:40 | NUR ---
MS RN OPENING NOTES RECEIVED PATIENT IN BED, ALERT AND ORIENTED X 3. VERBALLY RESPONSIVE AND ABLE TO FOLLOW DIRECTIONS. BREATHING REGULAR AND UNLABORED ON OXYGEN AT 3L/MIN VIA NASAL CANNULA. LEFT AND RIGHT AC BOTH G20 IV LINES INTACT AND FLUSHING WELL WITH NO BLEEDING OR S/S OF INFILTRATION NOTED. DENIES SUICIDAL IDEATION OR PAIN/DISCOMFORT AT THIS TIME. BED LOW AND LOCKED ON SEMI FOWLERS POSITION. CALL LIGHT IN REACH. WILL CONTINUE TO MONITOR.
[2020-04-30 20:00] VITALS: BP 141/66
[2020-05-01] MEDS: IV D5/ 0.9% NACL 1,000 ML IV PRN (05:36)
--- NOTE | 2020-05-01 06:55 | NUR ---
MS RN CLOSING NOTES PATIENT IN BED, ALERT AND ORIENTED X 3. AFEBRILE WITH NO S/S OF DISTRESS OBSERVED. LEFT AND RIGHT AC BOTH G20 IV LINES INTACT AND INFUSING WELL. NO COMPLAINTS OF PAIN/DISCOMFORT AT THIS TIME. LEYVA CATH PATENT DRAINING CLEAR YELLOW URINE WITH 2000cc OUTPUT. BED LOW AND LOCKED ON SEMI FOWLERS POSITION. CALL LIGHT IN REACH. WILL ENDORSE TO MORNING SHIFT FOR IDALIA.
--- NOTE | 2020-05-01 07:11 | NUR ---
MS RN OPENING NOTES RECEIVED PT AWAKE IN BED IN NO ACUTE SIGNS OF DISTRESS. HOB ELEVATED. A/O X 3. ABLE TO MAKE NEEDS KNOWN, DENIES PAIN OR DISCOMFORTS AT THIS TIME. PT REMAINS ON AIRB[place]NE PRECAUTIONS TO R/O TB. ON 02 VIA N/C @ 3LPM, BREATHING EVEN AND UNLABORED. IV ACCESSES ON RAC G#20 AND LAC G#20 BOTH INTACT AND PATENT, IVF RUNNING ORDERED. SAFETY PRECAUTIONS IN PLACE: BED IN LOWEST POSITION AND LOCKED. CALL LIGHT WITHIN REACH, SIDE RAILS UP X2. WILL CONTINUE TO MONITOR PT ACCORDINGLY.
[2020-05-01 07:39] LABS: CALCIUM, SERUM 9.5 mg/dL (8.5-10.1); CARBON DIOXIDE 27 mmol/L (21-32); CHLORIDE 106 mmol/L (98-107); CREATININE 0.4 mg/dL (0.6-1.3); GLUCOSE 92 mg/dL (74-106); SODIUM SERUM 143 mmol/L (136-145); UREA NITROGEN, BLOOD 15 mg/dL (7-18)
[2020-05-01 08:00] VITALS: BP 165/86
[2020-05-01] MEDS: PROSOURCE / PROSTAT (PYXIS) 30 ML UDC PO SCH ×2 (08:23→16:16)
[2020-05-01] MEDS: MULTIVITAMINS,THERAGRAN 1 UDTAB TABLET PO SCH (08:24)
[2020-05-01] MEDS: ASCORBIC ACID 500 MG TABLET PO SCH (08:25)
[2020-05-01] MEDS: ZINC SULFATE 220 MG CAPSULE PO SCH (08:25)
[2020-05-01] MEDS: METOPROLOL TARTRATE 25 MG TABLET PO SCH ×2 (08:25→21:28)
[2020-05-01] MEDS: LOSARTAN POTASSIUM 50 MG TABLET PO SCH (08:25)
[2020-05-01] MEDS: AMLODIPINE BESYLATE 10 MG TABLET PO SCH (08:25)
[2020-05-01] MEDS: PANTOPRAZOLE 40 MG TABLET.DR PO SCH (08:25)
[2020-05-01] MEDS: APIXABAN 5 MG TABLET PO SCH ×2 (08:26→16:17)
[2020-05-01] MEDS: DAKINS QUARTER STRENGTH (0.125%) 480 ML BOTTLE TOP SCH (08:32)
[2020-05-01] MEDS: POTASSIUM CL. PREMIX PERIPHER. 50 ML IV SCH ×2 (10:04→11:07)
--- NOTE | 2020-05-01 11:22 | NUR ---
RN NOTES PATIENT NOTED WITH LOW LEVEL POTASSIUM 3.O. INTELLIGENCE GROUP SUPERVISOR FIDEL ORDERED POTASSIUM 80MEQ. WILL CONTINUE TO MONITOR
[2020-05-01] MEDS: POTASSIUM CHLORIDE 20 MEQ TAB.PRT.SR PO SCH ×3 (11:38→13:42)
[2020-05-01 14:17] LABS: BASOPHILS % (AUTO) 0.8 % (0.0-2.0); EOSINOPHILS % (AUTO) 1.6 % (0.0-6.0); HEMATOCRIT 39 % (33-45); LYMPHOCYTES # (AUTO) 0.8 /CMM (0.8-4.8); LYMPHOCYTES % (AUTO) 22.7 % (20.0-44.0); MEAN CORPUSCULAR HGB CONC 33 g/dl (31.0-36.0); MEAN CORPUSCULAR VOLUME 97 fL (82-100); MONOCYTES # (AUTO) 0.2 /CMM (0.1-1.30); MONOCYTES % (AUTO) 6.9 % (2.0-12.0); NEUTROPHILS # (AUTO) 2.3 /CMM (1.8-8.9); PLATELET COUNT (AUTO) 307 /CMM (150-450); RED BLOOD CELL COUNT(AUTO) 4.09 MIL/uL (4.0-5.2); WHITE BLOOD COUNT (AUTO) 3.4 K/uL (4.3-11.0)
[2020-05-01 16:00] VITALS: BP 163/81
[2020-05-01] MEDS: CLONIDINE HCL 0.1 MG TABLET PO PRN (16:17)
--- NOTE | 2020-05-01 16:26 | NUR ---
RN NOTES PT NOTED WITH ELEVATED BP OF 163/81, PRN CLONIDINE 0.1MG TAB GIVEN AT 1617. WILL CONTINUE TO MONITOR
--- NOTE | 2020-05-01 18:38 | NUR ---
MS RN CLOSING NOTES PT IN BED AWAKE AND RESTING AT SEMI-JORGE'S POSITION, A/O X 3. ABLE TO MAKE NEEDS KNOWN. AIRB[place]NE PRECAUTIONS TO R/O TB MAINTAINED. ON 02 VIA N/C @ 3LPM, BREATHING EVEN AND UNLABORED, NO SOB NOTED DURING SHIFT. PIV'S ON RAC G#20 AND LAC G#20 BOTH INTACT AND PATENT, IVF RUNNING ORDERED. LEYVA IN PLACE AND ACTIVELY DRAINING CLEAR YELLOW URINE VIA GRAVITY, LEYVA CARE DONE. PT TURNED AND REPOSITIONED Q 2HRS AND PRN. ALL NEEDS AND CARE ANTICIPATED AND MET. SAFETY PRECAUTIONS KEPT IN PLACE: BED IN LOWEST POSITION AND LOCKED. CALL LIGHT WITHIN REACH, SIDE RAILS UP X2. WILL ENDORSE TO MICROBIOLOGY LAB TECHNICIAN NURSE FOR IDALIA.
--- NOTE | 2020-05-01 19:30 | NUR ---
MS/RN OPENING NOTES RECEIVED PATIENT IS BED RESTING. PATIENT IS ALERT AND ORIENTED X 3. PATIENT IS IN NOT SIGNS OF DISTRESS. NO SIGNS OF SOB OR RESPIRATORY DISTRESS NOTED. PATIENT HAS IV ACCESS ON RIGHT AC #20 G AND LEFT AC #[address] RUNNING D5NS AT 75ML/HR. PATIENT PLACED IN COMFORTABLE POSITION. LEYVA CATH IS IN PLACE DRAINING CLEAR YELLOW URINE. AIR[place]NE PRECAUTIONS ARE IN PLACE, R/O TB. SAFETY MEASURES ARE IN PLACE, BED IS IN THE LOWEST POSITION, SIDE RAILS UP X 3. CALL LIGHT IS WITHIN REACH. WILL CONTINUE TO MONITOR THROUGHOUT SHIFT.
[2020-05-01 20:26] VITALS: BP 110/77
[2020-05-02] MEDS: IV D5/ 0.9% NACL 1,000 ML IV PRN (01:07)
[2020-05-02 02:30] VITALS: BP 128/70
--- NOTE | 2020-05-02 06:30 | NUR ---
MS/RN CLOSING NOTES PATIENT IN BED RESTING. PATIENT IS ALERT AND ORIENTED X 3. PATIENT IS IN NO SIGNS OF DISTRESS. NO SIGNS OF SOB OR RESPIRATORY DISTRESS NOTED. PATIENT HAS IV ACCESS ON RIGHT AC #20 G AND LEFT AC #[address] RUNNING D5NS AT 75ML/HR. PATIENT IN COMFORTABLE POSITION. PATIENT REFUSED TO BE REPOSITION Q2H, MULTIPLE NURSES EXPLAINED TO PATIENT RISK AND BENEFIT OF TURNING AND REPOSITIONING. LEYVA CATH IS IN PLACE DRAINING CLEAR YELLOW URINE OUTPUT 850CC. ALL WOUND CARE TREATMENT DONE DURING SHIFT. AIR[place] PRECAUTIONS ARE IN PLACE, R/O TB. SAFETY MEASURES ARE IN PLACE, BED IS IN THE LOWEST POSITION, SIDE RAILS UP X 3. CALL LIGHT IS WITHIN REACH. WILL ENDORSE CARE TO DAY SHIFT NURSE.
[2020-05-02 06:37] LABS: BASOPHILS % (AUTO) 0.6 % (0.0-2.0); EOSINOPHILS % (AUTO) 1.2 % (0.0-6.0); HEMATOCRIT 34 % (33-45); HEMOGLOBIN 11.5 g/dL (11.5-14.8); LYMPHOCYTES # (AUTO) 0.4 /CMM (0.8-4.8); LYMPHOCYTES % (AUTO) 7.7 % (20.0-44.0); MEAN CORPUSCULAR HGB CONC 33 g/dl (31.0-36.0); MEAN CORPUSCULAR VOLUME 95 fL (82-100); MONOCYTES # (AUTO) 0.3 /CMM (0.1-1.30); MONOCYTES % (AUTO) 7.1 % (2.0-12.0); NEUTROPHILS # (AUTO) 3.8 /CMM (1.8-8.9); NEUTROPHILS % (AUTO) 83.4 % (43.0-81.0); PLATELET COUNT (AUTO) 268 /CMM (150-450); WHITE BLOOD COUNT (AUTO) 4.6 K/uL (4.3-11.0)
[2020-05-02 06:51] LABS: CARBON DIOXIDE 26 mmol/L (21-32); CHLORIDE 108 mmol/L (98-107); CREATININE 0.4 mg/dL (0.6-1.3); GLUCOSE 114 mg/dL (74-106); SODIUM SERUM 141 mmol/L (136-145); UREA NITROGEN, BLOOD 24 mg/dL (7-18)
--- NOTE | 2020-05-02 07:10 | NUR ---
MS RN OPENING NOTES PT RECEIVED AWAKE IN BED, NO ACUTE SIGNS OF DISTRESS NOTED. HOB ELEVATED. A/O X 3. ABLE TO MAKE NEEDS KNOWN, DENIES PAIN OR DISCOMFORTS AT THIS TIME. IV ACCESSES ON RAC G#20 AND LAC G#20 BOTH INTACT AND PATENT, IVF OF D5 NS @ 75ML/HR RUNNING ORDERED. REMAINS ON [place] PRECAUTIONS TO R/O TB. ON 02 VIA N/C @ 3LPM, BREATHING EVEN AND UNLABORED. SAFETY PRECAUTIONS IN PLACE: BED IN LOWEST POSITION AND LOCKED. CALL LIGHT WITHIN REACH, SIDE RAILS UP X2. WILL CONTINUE TO MONITOR PT ACCORDINGLY.
[2020-05-02 08:00] VITALS: BP 171/95
[2020-05-02] MEDS: LOSARTAN POTASSIUM 50 MG TABLET PO SCH (08:22)
[2020-05-02] MEDS: PANTOPRAZOLE 40 MG TABLET.DR PO SCH (08:22)
[2020-05-02] MEDS: AMLODIPINE BESYLATE 10 MG TABLET PO SCH (08:22)
[2020-05-02] MEDS: MULTIVITAMINS,THERAGRAN 1 UDTAB TABLET PO SCH (08:23)
[2020-05-02] MEDS: ASCORBIC ACID 500 MG TABLET PO SCH (08:23)
[2020-05-02] MEDS: METOPROLOL TARTRATE 25 MG TABLET PO SCH (08:23)
[2020-05-02] MEDS: ZINC SULFATE 220 MG CAPSULE PO SCH (08:23)
[2020-05-02] MEDS: DAKINS QUARTER STRENGTH (0.125%) 480 ML BOTTLE TOP SCH (08:24)
[2020-05-02] MEDS: APIXABAN 5 MG TABLET PO SCH ×2 (08:24→16:54)
[2020-05-02] MEDS: PROSOURCE / PROSTAT (PYXIS) 30 ML UDC PO SCH ×2 (08:24→16:55)
[2020-05-02 16:00] VITALS: BP 163/63
[2020-05-02 18:35] VITALS: BP 163/63
[2020-05-02] MEDS: CLONIDINE HCL 0.1 MG TABLET PO PRN (18:35)
--- NOTE | 2020-05-02 19:22 | NUR ---
HOME HEALTH CARE PROVIDER NOTES PT DISCHARGED HOME WITH HOME HEALTH AND FAMILY IN STABLE CONDITION. A/O X3-4. ABLE TO MAKE NEEDS KNOWN. V/S TAKEN AND RECORDED. PHOTOS OF SKIN ISSUES TAKEN AND FILED IN THE CHART. PIV'S ON B/L AC'S REMOVED WITH NO BLEEDING NOTED, DRY DRESSING APPLIED TO SITES. LEYVA REMOVED AND PT NOTED VOIDING. NAME ARMBAND REMOVED. DAUGHTER CALLED AND DISCHARGE INSTRUCTIONS GIVEN TO HER AND SHE VERBALIZED UNDERSTANDING. HEALTH TEACHINGS GIVEN TO PT AND SHE VERBALIZED UNDERSTANDING. TWO PAGES OF PRESCRIPTIONS OF ALL PT'S HOME MEDS PLACED INSIDE PT'S EXIT FOLDER AND HANDED FOLDER TO PT. PT LEFT UNIT AT 1840 VIA GURNEY ACCOMPANIED BY 2 STAFF FROM [facility] [employer]. CHARGE NURSE AWARE OF DISCHARGE.
== END 2020-05-02 19:00 | disposition home health service (06) | DRG 193 ==
LOC: TELE 21:06 → MED 04-22 11:04
PROVIDERS: ADMIT Internal Medicine; ATTEND Nurse Practitioner Acute Care
PROC: 0B9F8ZX Drainage of Right Lower Lung Lobe, Via Natural or Artificial Opening Endoscopic, Diagnostic (ICD-10-PCS; principal; 2020-04-29)
DX: J15.9 Unspecified bacterial pneumonia (principal); L89.154 Pressure ulcer of sacral region, stage 4; E43 Unspecified severe protein-calorie malnutrition; I50.31 Acute diastolic (congestive) heart failure; D68.69 Other thrombophilia; I31.3 Pericardial effusion (noninflammatory); J98.11 Atelectasis; I11.0 Hypertensive heart disease with heart failure; H91.10 Presbycusis, unspecified ear; E87.6 Hypokalemia; I48.91 Unspecified atrial fibrillation; M19.90 Unspecified osteoarthritis, unspecified site; K44.9 Diaphragmatic hernia without obstruction or gangrene; Z79.01 Long term (current) use of anticoagulants; J98.4 Other disorders of lung; E88.09 Other disorders of plasma-protein metabolism, not elsewhere classified; R53.1 Weakness; Z68.30 Body mass index [BMI] 30.0-30.9, adult; Z85.42 Personal history of malignant neoplasm of other parts of uterus; E66.9 Obesity, unspecified
CPT/HCPCS: 36415; 71045-TC; 80048-TC; 83735-TC; 83880; 84100-TC; 84132-TC; 85025-TC; 85730-TC; 86480; 86803; 87070-TC; 87075-TC; 87081-TC; 87116; 87186-TC; 87206; 87806; 87899; 94640-TC; A4218; A6253; A6403; G0378; J0330; J1100; J2250; J2270; J2405; J2543; J2704; J3010; J3480; J3490; J7030; J7042; J7050; J7060; Q2036; U0003